=== PATIENT | female | born 1960 | race Caucasian/White ===

== ENCOUNTER 2023-12-15 16:02 | Emergency (ER) | payer BC ==
[~2023-12-15] VITALS: Ht 165.1 cm; Wt 88.5 kg
[2023-12-15 16:20] VITALS: BP_SYST 146; PULSE 63; RESP 18; TEMP 98.6; O2SAT 96
[2023-12-15] MEDS: ASPIRIN 81 MG TABLET(ECOTRIN) PO ONE (16:46)
[2023-12-15 17:28] LABS: BASOPHILS # (AUTO) 0.1 K/uL (0.0-0.2); BASOPHILS % (AUTO) 0.7 % (0.0-2.0); EOSINOPHILS # (AUTO) 0.1 K/uL (0.0-0.4); EOSINOPHILS % (AUTO) 0.8 % (0.0-4.0); HEMATOCRIT 38.6 % (36-48); HEMOGLOBIN 13.2 g/dL (12.0-16.0); LYMPHOCYTES # (AUTO) 1.2 K/uL (1.0-5.5); MEAN CORPUSCULAR HEMOGLOBIN 29 pg (27-31); MEAN CORPUSCULAR HGB CONC 34 % (32-36); MEAN CORPUSCULAR VOLUME 85 fL (79.0-98.0); MONOCYTES # (AUTO) 0.6 K/uL (0.0-1.0); MONOCYTES % (AUTO) 7.4 % (1.7-9.3); NEUTROPHILS # (AUTO) 6.1 K/uL (1.8-7.7); NEUTROPHILS % (AUTO) 76.1 % (40.0-70.0); PLATELET COUNT (AUTO) 308 K/uL (130-430); RED BLOOD CELL COUNT(AUTO) 4.54 MIL/uL (4.2-6.2); RED CELL DISTRIBUTION WIDTH 14.4 % (9.0-15.0)
[2023-12-15 17:46] LABS: ANION GAP 13 (5-15); CALCIUM 8.6 mg/dL (8.4-11.0); CARBON DIOXIDE 23 mmol/L (23-29); CHLORIDE 107 mmol/L (98-107); GFR AFRICAN AMERICAN 109 mL/min (>90); GFR NON AFRICAN-AMERICAN 90 mL/min (>90); GLUCOSE 105 mg/dL (74-106); POTASSIUM 3.7 mmol/L (3.5-5.1); SODIUM SERUM 143 mmol/L (136-145); UREA NITROGEN, BLOOD 11 mg/dL (8-21)
[2023-12-15 20:03] VITALS: BP_SYST 144; PULSE 93; RESP 16; TEMP 98.2; O2SAT 96
== END 2023-12-15 20:03 | disposition home or self-care (01) ==
LOC: SED 16:02
DX: R07.89 Other chest pain (principal); M25.512 Pain in left shoulder; I10 Essential (primary) hypertension
CPT/HCPCS: 36415; 71045; 80048; 83880; 84484; 85025; 93005; 99285